=== PATIENT | female | born 1980 | race Caucasian/White ===

== ENCOUNTER → 2017-07-23 | Outpatient (CLI) | payer OTHER ==
[~2017-07-23] MED LIST: ASACOL HD800 MG PO; BENTYL 10 MG CA10 M1 PO; BIOTIN5 M1 PO; BIOTIN5000 MCG PO; CLARITIN10 MG PO; COZAAR 50 MG TA50 M2 PO; COZAAR100 MG PO; FISH OIL PO; FLEXERIL PO; FLONASE 0.05%50 MCG NASAL; FLOXIN OTI0.3 %/5 M1 OT; HYDROCODON-ACE1 EAC7 PO; HYDROCODONE-AP1 EAC6 PO; KEFLEX500 MG PO; LEVAQUIN 500 M500 M2 PO; LEVAQUIN 500 M500 MG PO; LORTAB 10 MG-3473 ML PO; LOSARTAN POTAS100 MG PO; LOSARTAN POTASS50 MG PO; LUNESTA2 MG PO; MEDI-LAXX TABL1 EACH PO; MELATONIN5 M1 PO; MULTI VITAMIN1 EACH PO; MULTIVITAMINS PO; NORCO 5-325 TA1 EAC1 PO; NORCO 5-325 TA1 EACH PO; NORVASC5 MG PO; NYAMYC15 GM TOP; ONDANSETRON HCL4 M2 PO; PHENERGAN 25 MG25 MG PO; PHENERGAN12.5 M2 RECTAL; PREDNISONE 10 M10 MG PO; PREDNISONE 20 M20 M1 PO; REMICADE 1100 MG/VIA IV; SUDAFED 12 HOU120 MG PO; TRAZODONE HCL50 MG PO; VENTOLIN HFA 1818 GM INH; VITAMIN D35000 UNI1 PO; VYVANSE50 MG PO; ZOFRAN ODT4 MG DISSOLVE; ZOFRAN ODT4 MG PO; ZOFRAN4 MG PO; ZPAK PO; ZYRTEC10 M5 PO; ZYRTEC10 MG PO
[2017-07-23 13:35] LABS: ABSOLUTE BASOPHILS 0.1 thou/uL (0.0-0.2); ABSOLUTE EOSINOPHILS 0.3 thou/uL (0.0-0.7); ABSOLUTE LYMPHOCYTES 2.8 thou/uL (0.8-5.3); ABSOLUTE MONOCYTES 0.5 thou/uL (0.0-1.2); ABSOLUTE NEUTROPHILS 6.2 thou/uL (1.6-8.1); BASOPHILS 0.9 %; EOSINOPHILS 2.9 %; HEMATOCRIT 41.7 % (37.0-47.0); HEMOGLOBIN 14.2 gm/dL (12.0-15.0); LYMPHOCYTES 28.2 %; MCH 32.8 pg (26.0-34.0); MCHC 34.1 g/dL (28.0-37.0); MCV 96.4 fL (80.0-100.0); MONOCYTES 4.7 %; MPV 7.3 fl. (7.2-11.1); NUCLEATED RBCS 0 /100WBC; PLATELET COUNT* 281 thou/uL (150-400); POLYS 63.3 %; RBC 4.33 mil/uL (4.20-5.00); RDW-CV 13.8 % (10.5-14.5); WBC 9.9 thou/uL (4.0-11.0)
[2017-07-23 13:46] LABS: CALCIUM 8.7 mg/dL (8.5-10.1); CREATININE 0.8 mg/dL (0.6-1.3); POTASSIUM 3.4 mmol/L (3.5-5.1); TOTAL BILIRUBIN 1.8 mg/dL (<0.1-1.0); TOTAL PROTEIN 7.3 g/dL (6.4-8.2)
[2017-07-23 14:32] LABS: ESR (SEDRATE) 4 mm/hr (0-20)
== END ==
LOC: M.LAB 13:17
PROVIDERS: Otolaryngology Otolaryngology/Facial Plastic Surgery
DX: K51.00 Ulcerative (chronic) pancolitis without complications (principal); E55.9 Vitamin D deficiency, unspecified

== ENCOUNTER → 2017-09-28 | Outpatient (CLI) | payer OTHER ==
[2017-09-28 14:08] LABS: HEMATOCRIT 40.2 % (37.0-47.0); HEMOGLOBIN 13.6 gm/dL (12.0-15.0); MCH 32.7 pg (26.0-34.0); MCHC 33.9 g/dL (28.0-37.0); MCV 96.6 fL (80.0-100.0); MPV 7.6 fl. (7.2-11.1); RBC 4.16 mil/uL (4.20-5.00); RDW-CV 13.7 % (10.5-14.5); WBC 9.9 thou/uL (4.0-11.0)
[2017-09-28 14:17] LABS: ALBUMIN 3.6 g/dL (3.4-5.0); CALCIUM 8.8 mg/dL (8.5-10.1); POTASSIUM 3.9 mmol/L (3.5-5.1); TOTAL BILIRUBIN 0.7 mg/dL (<0.1-1.0); TOTAL PROTEIN 7.3 g/dL (6.4-8.2)
[2017-09-29 14:07] LABS: T7 1.9 (1.2-4.9)
== END ==
LOC: M.LAB 13:45
PROVIDERS: Family Medicine
DX: R53.83 Other fatigue (principal); R10.9 Unspecified abdominal pain; R30.0 Dysuria; K51.00 Ulcerative (chronic) pancolitis without complications

== ENCOUNTER 2018-04-28 21:22 | Emergency (ER) | payer OTHER ==
[~2018-04-28] VITALS: Ht 160 cm; Wt 90.7 kg
[2018-04-28] MEDS ORDERED: AMBIEN 5 MG TABL5 M1 (21:28)
[2018-04-28 21:53] LABS: ABSOLUTE BASOPHILS 0.1 thou/uL (0.0-0.2); ABSOLUTE EOSINOPHILS 0.6 thou/uL (0.0-0.7); ABSOLUTE LYMPHOCYTES 3.9 thou/uL (0.8-5.3); ABSOLUTE MONOCYTES 0.7 thou/uL (0.0-1.2); ABSOLUTE NEUTROPHILS 3.3 thou/uL (1.6-8.1); BASOPHILS 1.3 %; EOSINOPHILS 7.3 %; HEMATOCRIT 41.2 % (37.0-47.0); LYMPHOCYTES 45.3 %; MCH 31.9 pg (26.0-34.0); MCHC 33.9 g/dL (28.0-37.0); MCV 93.9 fL (80.0-100.0); MPV 7.9 fl. (7.2-11.1); NUCLEATED RBCS 0 /100WBC; PLATELET COUNT* 263 thou/uL (150-400); POLYS 38.1 %; RBC 4.38 mil/uL (4.20-5.00); RDW-CV 13.5 % (10.5-14.5); WBC 8.7 thou/uL (4.0-11.0)
[2018-04-28 22:09] LABS: ANION GAP 6 mmol/L (7-16); BUN 14 mg/dL (7-18); CALCIUM 8.7 mg/dL (8.5-10.1); CHLORIDE 104 mmol/L (98-107); CO2 30 mmol/L (21-32); CREATININE 0.9 mg/dL (0.6-1.3); GLUCOSE 99 mg/dL (70-99); POTASSIUM 3.6 mmol/L (3.5-5.1); SODIUM 140 mmol/L (136-145)
[2018-04-28 22:16] LABS: ALBUMIN 3.6 g/dL (3.4-5.0); ALKALINE PHOSPHATASE 74 U/L (46-116); LIPASE 228 U/L (73-393); SGOT 39 U/L (15-37); SGPT 26 U/L (30-65); TOTAL BILIRUBIN 0.4 mg/dL (<0.1-1.0); TOTAL PROTEIN 7.2 g/dL (6.4-8.2); TROPONIN-I LEVEL <0.06 ng/mL (<0.06)
[2018-04-28 22:28] LABS: URINE BILIRUBIN NEGATIVE (Negative); URINE BLOOD 1+ (Negative); URINE CLARITY CLEAR; URINE COLOR YELLOW; URINE GLUCOSE-RANDOM NEGATIVE (Negative); URINE KETONES NEGATIVE (Negative); URINE LEUKOCYTES NEGATIVE (Negative); URINE NITRITE NEGATIVE (Negative); URINE PROTEIN NEGATIVE (Negative); URINE SPECIFIC GRAVITY 1.025 (1.005-1.030); URINE UROBILINOGEN 0.2 E.U./dl (0.2-1.0)
[2018-04-28 23:56] LABS: CASTS None Seen /LPF (None Seen); SQUAMOUS 4-10 Moderate /LPF (0-3); URINE RBC None Seen /HPF (0-2); URINE WBC 0-5 Rare /HPF (0-5)
[2018-04-28 23:57] LABS: BACTERIA >30 Many /HPF (None Seen); CRYSTALS None Seen /LPF (None Seen)
[2018-04-29] MEDS ORDERED: ZOFRAN4 MG PO (00:12)
[2018-04-29 00:33] VITALS: BP 118/77
--- NOTE | 2018-04-29 10:16 | EKG ---
[place] [address] ELECTROCARDIOGRAM REPORT Name: DOMINIQUE BLANCO Room: [facility]#: [id number] Admission: 04/28/18 Attend Phys: Discharge: 04/29/18 Date of : 78 Report #: [id number] THIS REPORT FOR: //name// [facility] ED Test Date: 2018-04-28 Test Time: 21:54:51 Pat Name: DOMINIQUE RAMOSANNELISEJESUS ALBERTO Department: Room: Gender: F Maintenance Analyst: STAN : 1980 Requested By: Donna Abbasi Order Number: [id number] MD: Joseluis Pena Measurements Intervals [place] Rate: 77 P: -6 SD: 149 QRS: -16 QRSD: 100 T: 19 QT: 382 QTc: 433 Interpretive Statements Sinus rhythm Borderline left axis deviation Low voltage, precordial leads Compared to ECG 05/18/2016 14:08:51 No significant changes Electronically Signed On 04-29-2018 10:16:37 [employer] by Joseluis Pena [email or web address] <ELECTRONICALLY SIGNED> By: Joseluis Pena MD, [facility] 04/29/18 [id number] Joseluis Pena MD, [facility] /EPI
== END 2018-04-29 00:34 | disposition home or self-care (01) ==
LOC: M.ERS 21:22
PROVIDERS: Nurse Practitioner Family
DX: R10.13 Epigastric pain (principal); I10 Essential (primary) hypertension; F90.9 Attention-deficit hyperactivity disorder, unspecified type; G47.30 Sleep apnea, unspecified; Z90.49 Acquired absence of other specified parts of digestive tract; Z86.2 Personal history of diseases of the blood and blood-forming organs and certain disorders involving the immune mechanism; Z98.890 Other specified postprocedural states; Z88.6 Allergy status to analgesic agent

== ENCOUNTER → 2018-06-13 | Outpatient (CLI) | payer OTHER ==
[~2018-06-13] MED LIST changes: +AMBIEN 5 MG TABL5 M1
[2018-06-13 15:47] LABS: ABSOLUTE BASOPHILS 0.1 thou/uL (0.0-0.2); ABSOLUTE EOSINOPHILS 0.4 thou/uL (0.0-0.7); ABSOLUTE LYMPHOCYTES 3.8 thou/uL (0.8-5.3); ABSOLUTE MONOCYTES 0.7 thou/uL (0.0-1.2); ABSOLUTE NEUTROPHILS 5.6 thou/uL (1.6-8.1); BASOPHILS 1.2 %; EOSINOPHILS 3.9 %; HEMATOCRIT 39.4 % (37.0-47.0); HEMOGLOBIN 13.4 gm/dL (12.0-15.0); LYMPHOCYTES 35.5 %; MCH 31.1 pg (26.0-34.0); MCV 91.5 fL (80.0-100.0); MONOCYTES 6.7 %; MPV 7.4 fl. (7.2-11.1); NUCLEATED RBCS 0 /100WBC; PLATELET COUNT* 280 thou/uL (150-400); POLYS 52.7 %; RDW-CV 13.2 % (10.5-14.5); WBC 10.7 thou/uL (4.0-11.0)
[2018-06-13 16:00] LABS: ALBUMIN 3.6 g/dL (3.4-5.0); CALCIUM 8.7 mg/dL (8.5-10.1); CREATININE 1.3 mg/dL (0.6-1.3); POTASSIUM 3.1 mmol/L (3.5-5.1); TOTAL BILIRUBIN 0.6 mg/dL (<0.1-1.0); TOTAL PROTEIN 7.2 g/dL (6.4-8.2)
[2018-06-13 16:58] LABS: ESR (SEDRATE) 5 mm/hr (0-20)
== END ==
LOC: M.LAB 15:28
PROVIDERS: Nurse Practitioner Adult Health
DX: R19.7 Diarrhea, unspecified (principal); R10.9 Unspecified abdominal pain; I10 Essential (primary) hypertension; E66.01 Morbid (severe) obesity due to excess calories; Z68.43 Body mass index [BMI] 50.0-59.9, adult